=== PATIENT | male | born 1990 | race Caucasian/White ===

== ENCOUNTER 2016-09-26 23:24 | Emergency (ER) | payer OTHER ==
[~2016-09-26] VITALS: Ht 170.2 cm; Wt 72.6 kg
--- NOTE | 2016-09-26 23:24 | NUR ---
Patient was BIBA at this time.
[2016-09-27 00:11] VITALS: BP 117/77
--- NOTE | 2016-09-27 00:12 | NUR ---
Dr. Xiong evaluating patient.
[2016-09-27] MEDS ORDERED: HALOPERIDOL IM 5 MG/ML VIAL IM ONE (00:15)
--- NOTE | 2016-09-27 01:00 | NUR ---
Pt screeching less frequent but still very loud.
[2016-09-27] MEDS ORDERED: LORazepam 2 MG/ML VIAL IM/IVP ONE (01:10)
--- NOTE | 2016-09-27 02:00 | NUR ---
PT SLEEPING AND QUIET. RESP EVEN AND UNLABORED. SKIN W/D. COLOR WNL.
--- NOTE | 2016-09-27 02:30 | NUR ---
Patient taken to bed 03 via gurney per EMS.
--- NOTE | 2016-09-27 05:22 | NUR ---
pt continues to sleep, no acute resp. distress noted.
--- NOTE | 2016-09-27 06:19 | NUR ---
PT SLEEPING, NO CHANGE IN STATUS
--- NOTE | 2016-09-27 07:04 | NUR ---
REPORT TO JERALD DE LA TORRE
--- NOTE | 2016-09-27 08:01 | NUR ---
PT SLEEPING COMFORTABLY ON BED AT THIS TIME, NO AGRESSIVE BEHAVIOR NOTED, VSS, WILL CONTINUE TO MONITOR
--- NOTE | 2016-09-27 08:01 | NUR ---
Cecily lewis in [facility] - 09/27/16 at 0802 by NAKIA PT SLEEPING COMFORTABLY ON BED AT THIS TIME, NO AGRESSIVE BEHAVIOR NOTED, VSS, WILL CONTINUE TO MONITOR
--- NOTE | 2016-09-27 08:02 | NUR ---
PT SLEEPING COMFORTABLY ON BED AT THIS TIME, NO AGRESSIVE BEHAVIOR NOTED, VSS, WILL CONTINUE TO MONITOR
--- NOTE | 2016-09-27 09:45 | NUR ---
COOPERATIVE PT WAS ABLE TO AMBULATE WITH NO ASSISTANCE WITH EMT RITA
[2016-09-27 10:08] VITALS: BP 117/72
--- NOTE | 2016-09-27 10:08 | NUR ---
Patient discharged with v/s stable. Written and verbal after care instructions given and explained. Patient verbalized understanding. Ambulatory with steady gait. All questions addressed prior to discharge. Advised to follow up with PMD.
== END 2016-09-27 10:08 | disposition home or self-care (01) ==
LOC: MED 23:24
DX: F10.129 Alcohol abuse with intoxication, unspecified (principal); F12.90 Cannabis use, unspecified, uncomplicated
CPT/HCPCS: 96372; 99284; J1630; J2060